=== PATIENT | female | born 2000 | race Caucasian/White ===

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

== ENCOUNTER 2019-03-23 05:11 | Inpatient (IN) | payer MEDICAID, OTHER, SELFPAY ==
[~2019-03-23] VITALS: Ht 177.8 cm; Wt 100.7 kg
[~2019-03-23 05:11] MED LIST: ALEV220T26 PO; LANS30CA; MAXA10TA15 PO; SUCR1TAB56 PO
[2019-03-23] MEDS ORDERED: MULT-40 PO (06:09)
[2019-03-23] MEDS ORDERED: GREE150C7 PO (06:09)
[2019-03-23] MEDS ORDERED: NORE0.353 PO (06:09)
[2019-03-23] MEDS ORDERED: CLIN1GEL3 EXT (06:09)
[2019-03-23] MEDS ORDERED: L-CA1CAP PO (06:09)
[2019-03-23] MEDS ORDERED: OMEGCAP4 PO (06:09)
[2019-03-23] MEDS ORDERED: MINO100C80 PO (06:09)
[2019-03-23 08:20] LABS: BASO % 0.4 % (0.0-1.0); EOS # 0.1 10^3/uL (0.0-0.50); EOS % 1.2 % (0.0-3.0); HEMATOCRIT 34.7 % (36.0-47.0); HEMOGLOBIN 11.1 g/dl (12.0-15.5); LYMPH # 2.3 10^3/uL (1.5-6.5); LYMPH % 44.2 % (24.0-44.0); MEAN CORPUSCULAR HEMOGLOBIN 26.2 pg (27.0-33.0); MEAN CORPUSCULAR VOLUME 81.8 fl (80.0-96.0); MONO # 0.3 10^3/uL (0.0-0.8); MONO % 5.5 % (0.0-5.0); NEUTROPHILS # 2.5 10^3/uL (1.8-7.7); NEUTROPHILS % 48.5 % (36.0-66.0); PLATELET COUNT, AUTOMATED 214 10^3/uL (150-450); RED BLOOD COUNT 4.24 10^6/uL (4.00-5.40); WHITE BLOOD COUNT 5.1 10^3/uL (4.0-10.0)
[2019-03-23] MEDS: D5W/LR 1,000 ML IV SCH ×2 (08:32→18:50)
[2019-03-23 08:38] LABS: ALBUMIN 3.5 GM/DL (3.2-5.2); ALT/SGPT 34 U/L (12-78); BILIRUBIN,TOTAL 0.2 MG/DL (0.2-1.0); BLOOD UREA NITROGEN 5 MG/DL (7-18); CALCIUM LEVEL 8.7 MG/DL (8.5-10.1); CARBON DIOXIDE LEVEL 27 MEQ/L (21-32); CHLORIDE LEVEL 109 MEQ/L (98-107); CREATININE FOR GFR 0.82 MG/DL (0.55-1.30); GLUCOSE, FASTING 84 MG/DL (70-100); POTASSIUM SERUM 3.4 MEQ/L (3.5-5.1); SODIUM LEVEL 143 MEQ/L (136-145); TOTAL PROTEIN 6.2 GM/DL (6.4-8.2)
[2019-03-23] MEDS ORDERED: KETOROLAC 30 MG/ML VIAL (J1885) As Ordered ONE (08:46)
[2019-03-23] MEDS ORDERED: KETOROLAC 30 MG/ML VIAL (J1885) IV ONE (08:50)
[2019-03-23 09:00] VITALS: BP 141/84
[2019-03-23] MEDS: LR 1,000 ML IV SCH ×2 (09:15→15:55)
[2019-03-23] MEDS: MORPHINE 4 MG/ML 1ML VIAL/SYRINGE (J2270) IV PRN ×3 (09:31→21:53)
[2019-03-23] MEDS: AMPICILLIN SOD/SULBACTAM SOD 3 GM in D5W MINI-BAG PLUS 100 ML IV SCH ×3 (09:31→20:30)
[2019-03-23 12:00] VITALS: BP 99/61
[2019-03-23] MEDS: PANTOPRAZOLE 40MG TAB (PROTONIX) PO SCH (14:59)
[2019-03-23] MEDS: KETOROLAC 30 MG/ML VIAL (J1885) IV SCH ×2 (15:00→20:30)
--- NOTE | 2019-03-23 15:24 | REP ---
HIDA SCAN: Following the intravenous administration of 6.5 mCi of technetium 99m mebrofenin, multiple images of the right upper quadrant are performed every 5 minutes for a period of one hour. The gallbladder is visualized at 20 minutes post injection. There is biliary to bowel transit at 55 minutes post injection. IMPRESSION: No scintigraphic evidence of cholecystitis. Electronically Signed by Juanito Willis MD 03/24/2019 01:01 P
[2019-03-23 16:00] VITALS: BP 120/66
[2019-03-23 20:00] VITALS: BP 110/66
[2019-03-24] VITALS: BP 108/51
[2019-03-24] MEDS: MORPHINE 4 MG/ML 1ML VIAL/SYRINGE (J2270) IV PRN ×4 (00:27→20:11)
[2019-03-24] MEDS: AMPICILLIN SOD/SULBACTAM SOD 3 GM in D5W MINI-BAG PLUS 100 ML IV SCH ×4 (02:39→21:54)
[2019-03-24] MEDS: KETOROLAC 30 MG/ML VIAL (J1885) IV SCH ×4 (02:40→21:54)
[2019-03-24 04:00] VITALS: BP 96/54
[2019-03-24] MEDS: GASTROGRAFIN SOLUTION 30ML PO SCH ×2 (06:20→08:02)
[2019-03-24] MEDS: D5W/LR 1,000 ML IV SCH ×4 (06:22→22:39)
[2019-03-24 08:00] VITALS: BP 106/54
[2019-03-24 08:19] LABS: URINE PREG TEST NEGATIVE (NEGATIVE)
[2019-03-24 08:47] LABS: HEMATOCRIT 36.4 % (36.0-47.0); HEMOGLOBIN 11.6 g/dl (12.0-15.5); MEAN CORPUSCULAR HEMOGLOBIN 27.1 pg (27.0-33.0); MEAN CORPUSCULAR HGB CONC 31.9 g/dl (32.0-36.5); PLATELET COUNT, AUTOMATED 217 10^3/uL (150-450); RED BLOOD COUNT 4.28 10^6/uL (4.00-5.40); WHITE BLOOD COUNT 4.4 10^3/uL (4.0-10.0)
--- NOTE | 2019-03-24 08:48 | HPE ---
DATE OF ADMISSION: 03/23/2019 CHIEF COMPLAINT: Right upper quadrant pain, question cholecystitis. HISTORY OF PRESENT ILLNESS: The patient is a 18-year-old female who has had some irritable bowel symptoms over the last several years, had a workup by Dr. Barber a couple years ago including a gallbladder ultrasound which showed no gallstones. However, she presented to the emergency room with a 24 to 36-hour history of abdominal pain and specifically right upper quadrant abdominal pain. She has had some minimal nausea without significant reflux. She has not had a history of gastric ulcers and has not had any previous obstructive symptoms. Gallbladder ultrasound was performed and revealed thickening of the gallbladder consistent with cholecystitis. No gallstones were seen. However and the common bile duct was normal. LFTs were normal and white count was normal. She was transferred here for additional recommendations. After she came to the emergency room and was directly admitted to the floor for treatment for antibiotics, nothing by mouth, and treatment. After being admitted to the floor she was seen and at this time it was almost 48 hours since she has had her abdominal pain and a repeat CBC and CPA were normal showing no evidence of cholecystitis. Her past medical history is significant for irritable bowel disease. Medications at home are control pills, multiple multivitamins, Clindagel for facial acne, omega 3 fish oil, etc. Physical exam reveals a 18-year-old female who looks stated age. HEENT is unremarkable. Neck supple without adenopathy. Lungs are clear to auscultation. Heart is regular. Abdomen, however, she has some tenderness in the right upper quadrant and on the right ribs and on the costal margin. The rest of her abdomen is benign. She is not distended. She is not tender in other areas. IMPRESSION AND PLAN: The patient has clinical evidence of localized inflammation in the right upper quadrant. However, this does not seem like a typical infectious process given her history of no gallstones and normal white count. This could be an unusual presentation of acalculous cholecystitis and thus will plan to obtain the HIDA scan to rule out acute cholecystitis. If this is negative, we will see how she is doing later on and possibly proceed with a CAT scan of the abdomen and pelvis. Otherwise her temperature and white count appear normal at this time.
[2019-03-24 09:14] LABS: ALBUMIN 3.1 GM/DL (3.2-5.2); ALT/SGPT 26 U/L (12-78); BILIRUBIN,TOTAL 0.2 MG/DL (0.2-1.0); BLOOD UREA NITROGEN 3 MG/DL (7-18); CALCIUM LEVEL 8.7 MG/DL (8.5-10.1); CARBON DIOXIDE LEVEL 30 MEQ/L (21-32); CHLORIDE LEVEL 109 MEQ/L (98-107); CREATININE FOR GFR 0.83 MG/DL (0.55-1.30); GLUCOSE, FASTING 88 MG/DL (70-100); SODIUM LEVEL 143 MEQ/L (136-145); TOTAL PROTEIN 5.9 GM/DL (6.4-8.2)
[2019-03-24 09:29] LABS: AMYLASE 26 U/L (25-115)
[2019-03-24] MEDS: PANTOPRAZOLE 40MG TAB (PROTONIX) PO SCH (09:30)
--- NOTE | 2019-03-24 10:19 | REP ---
REASON FOR EXAM: Abdominal pain. No priors for comparison. The lack of intravenous contrast decreases the sensitivity of the exam. Oral bowel preparatory contrast was administered prior to the exam. Patchy opacities are seen in the lung bases with suspected small bilateral pleural effusions. Limited evaluation of the solid intra-abdominal organs show no gross abnormalities. There pericholecystic edema with fluid in Morison's pouch and a small amount of fluid in the right paracolic gutter. There appears to be a small amount of dense material in the gallbladder. This limited examination cannot assess for gallbladder wall thickening. Limited evaluation of the pancreas, adrenal glands, and kidneys show no gross abnormalities. Limited evaluation of the abdominal aorta and paraaortic regions show no gross abnormalities. There is no evidence of free air in the abdomen. Limited evaluation of the bowel loops and their mesenteries show no gross abnormalities. The appendix is well visualized and is within normal limits. CT PELVIS: There is a moderate amount of free fluid with free fluid seen in the inferior most portion of the right paracolic gutter. Limited evaluation of the pelvic bowel loops show no gross abnormalities. Bone window technique throughout the exam shows the osseous structures to be within normal limits. IMPRESSION: 1. Abnormal lung base findings as described above suspicious for pneumonia with small pleural effusions, however, this needs to be correlated clinically with appropriate followup. 2. Abnormal fluid in the abdomen and pelvis as described above. I cannot rule out the possibility of gallbladder pathology on this limited noncontrast enhanced exam. I would suggest followup with an IV contrast enhanced exam for better evaluation of not only the gallbladder, but the pancreas. 3. Patient had an outside gallbladder ultrasound obtained 03/2019. There is no report from that examination accompanying the images. Review of that examination shows an abnormal gallbladder. Acute cholecystitis cannot be ruled out by today's CT exam. Pancreatitis cannot be ruled out by today's CT exam. 4. Other findings as described above. Electronically Signed by Dennis Osuna DO 03/24/2019 12:37 P
[2019-03-24 10:36] LABS: LIPASE 93 U/L (73-393)
[2019-03-24 12:00] VITALS: BP 138/75
[2019-03-24 12:11] LABS: APPEARANCE, URINE HAZY (CLEAR); BACTERIA, URINE AUTO 1+ (NEGATIVE); BILIRUBIN, URINE AUTO NEGATIVE (NEGATIVE); BLOOD, URINE BLOOD 2+ (NEGATIVE); COLOR, URINE YELLOW (YELLOW); GLUCOSE, URINE (UA) AUTO NEGATIVE (NEGATIVE); KETONE, URINE AUTO NEGATIVE (NEGATIVE); LEUKOCYTE ESTERASE, URINE AUTO 3+ (NEGATIVE); NITRITE, URINE AUTO NEGATIVE (NEGATIVE); PROTEIN, URINE AUTO NEGATIVE (NEGATIVE); RBC, URINE AUTO 5 /HPF (0-3); SPECIFIC GRAVITY URINE AUTO 1.003 (1.002-1.035); SQUAMOUS EPITHELIAL CELL UR AU 11 /HPF (0-6); UROBILINOGEN, URINE AUTO 0.2 mg/dL (0.0-2.0); WBC, URINE AUTO 26 /HPF (0-3)
[2019-03-24] MEDS: SUCRALFATE SUSP 1GM/10ML UD PO SCH ×2 (12:21→18:34)
[2019-03-24] MEDS: IPRATROPIUM 0.5MG/ALBUTEROL 2.5MG INH SOL UD 3ML (DUONEB)(J7620) NEB SCH ×3 (15:04→20:00)
[2019-03-24 16:00] VITALS: BP 127/71
[2019-03-24] MEDS ORDERED: ONDANSETRON 4MG/2ML VIAL (J2405) IV PRN (22:30)
[2019-03-24 23:00] VITALS: BP 117/73
[2019-03-25] MEDS: AMPICILLIN SOD/SULBACTAM SOD 3 GM in D5W MINI-BAG PLUS 100 ML IV SCH ×4 (03:17→20:49)
[2019-03-25] MEDS: KETOROLAC 30 MG/ML VIAL (J1885) IV SCH ×4 (03:18→20:49)
[2019-03-25] MEDS: MORPHINE 4 MG/ML 1ML VIAL/SYRINGE (J2270) IV PRN ×3 (03:35→13:46)
[2019-03-25 04:00] VITALS: BP 100/56
[2019-03-25] MEDS: SUCRALFATE SUSP 1GM/10ML UD PO SCH ×2 (06:00)
[2019-03-25 08:00] VITALS: BP 126/71
[2019-03-25] MEDS: PANTOPRAZOLE 40MG TAB (PROTONIX) PO SCH (08:15)
[2019-03-25] MEDS: D5W/LR 1,000 ML IV SCH ×2 (08:36→19:21)
[2019-03-25] MEDS: IPRATROPIUM 0.5MG/ALBUTEROL 2.5MG INH SOL UD 3ML (DUONEB)(J7620) NEB SCH ×4 (08:39→20:51)
--- NOTE | 2019-03-25 09:08 | IPN ---
DATE: 03/23/2019 SUBJECTIVELY: The patient states that she is feeling a little bit better and she notices that she really does not have that much pain if she is laying relatively still. This is different than the day prior she continued to have pain despite being relatively sedentary. We did a CAT scan and it definitely showed some atelectasis bilaterally and some fluid around the pancreatic head, around the gallbladder area and around Gerota's fascia. No other significant abnormalities were appreciated on the study. Her white count remained normal, amylase and lipase normal which I checked after the CAT scan showed the inflammatory changes around the pancreas and she has been afebrile. On her physical exam her abdomen is soft. She has decreased tenderness in the right subcostal area compared to the day prior and some mild tenderness in the mid epigastric area however today but overall an improvement since yesterday. IMPRESSION AND PLAN: The patient has some improvement of abdominal pain of undetermined etiology. This seems as though this is a very unusual presentation for acalculous cholecystitis, otherwise the etiology of this is yet to be determined. I have discussed this with other surgeons to see if they think that this might still be gallbladder related despite a normal liver function test with the inflammatory changes seen and they are skeptical that that is the etiology but they recommend seeing how things go given that there is no increase white count, fever, etc. at this time and the pain is slowly improving to see how things go next 24-48 hours.
[2019-03-25 09:15] LABS: HEMATOCRIT 38.8 % (36.0-47.0); HEMOGLOBIN 12.2 g/dl (12.0-15.5); MEAN CORPUSCULAR HEMOGLOBIN 26.9 pg (27.0-33.0); MEAN CORPUSCULAR HGB CONC 31.4 g/dl (32.0-36.5); MEAN CORPUSCULAR VOLUME 85.5 fl (80.0-96.0); PLATELET COUNT, AUTOMATED 203 10^3/uL (150-450); RED BLOOD COUNT 4.54 10^6/uL (4.00-5.40); WHITE BLOOD COUNT 4.7 10^3/uL (4.0-10.0)
[2019-03-25 09:58] LABS: ALBUMIN 3.1 GM/DL (3.2-5.2); ALT/SGPT 24 U/L (12-78); BILIRUBIN,TOTAL 0.2 MG/DL (0.2-1.0); BLOOD UREA NITROGEN 3 MG/DL (7-18); CALCIUM LEVEL 8.7 MG/DL (8.5-10.1); CARBON DIOXIDE LEVEL 29 MEQ/L (21-32); CHLORIDE LEVEL 107 MEQ/L (98-107); CREATININE FOR GFR 0.93 MG/DL (0.55-1.30); GLUCOSE, FASTING 80 MG/DL (70-100); POTASSIUM SERUM 3.6 MEQ/L (3.5-5.1); SODIUM LEVEL 142 MEQ/L (136-145); TOTAL PROTEIN 5.7 GM/DL (6.4-8.2)
[2019-03-25 12:00] VITALS: BP 133/63
[2019-03-25 16:00] VITALS: BP 118/72
[2019-03-25 23:00] VITALS: BP 103/54
[2019-03-26] VITALS (10 sets, daily range): BP systolic 113–142; BP diastolic 55–78
[2019-03-26] MEDS: KETOROLAC 30 MG/ML VIAL (J1885) IV SCH ×4 (03:32→20:25)
[2019-03-26] MEDS: AMPICILLIN SOD/SULBACTAM SOD 3 GM in D5W MINI-BAG PLUS 100 ML IV SCH ×4 (03:32→20:25)
[2019-03-26] MEDS: D5W/LR 1,000 ML IV SCH ×2 (03:33→13:20)
[2019-03-26] MEDS: IPRATROPIUM 0.5MG/ALBUTEROL 2.5MG INH SOL UD 3ML (DUONEB)(J7620) NEB SCH ×4 (07:52→21:30)
[2019-03-26] MEDS: PANTOPRAZOLE 40MG TAB (PROTONIX) PO SCH (09:13)
--- NOTE | 2019-03-26 13:36 | IPN ---
DATE: 03/25/2019 The patient seems to be making no significant progress over the day and overnight; however, she has still been afebrile, her white count is still normal, and no other significant abnormalities are appreciated on exam. She is starting to have a little bit more tenderness in the epigastric area compared to the right upper quadrant, and that is her descriptive terms and discomfort that she is having; however, on her physical exam, it seems as though she is getting less tender each day and so much more so that it seems like it is mostly discomfort more than true tenderness as she came in with, and it is significantly improved from that status, although she still claims despite her pain being much better than on admission, her pain is still an 8-9. IMPRESSION AND PLAN: The patient has persistence of her of cholecystitis, although I do feel that most likely this is improving, and at this point we have no other specific diagnosis for her other than an acalculous cholecystitis with some inflammatory changes in this area. Thus, we made some recommendations to the patient that we can continue our workup with MRIs, upper gastrointestinal (GI), etc., or proceed with laparoscopic cholecystectomy. At this point she would like to proceed with laparoscopic cholecystectomy. She understands the risks as well as benefits associated with this and will proceed with this tomorrow.
[2019-03-26] MEDS ORDERED: BUPIVACAINE/EPIN 0.25% 30 ML VIAL As Ordered ONE (13:43)
[2019-03-26] MEDS ORDERED: LIDOCAINE 2% INJ 100 MG/5 ML SDV (FOR ANES.) As Ordered ONE (13:56)
[2019-03-26] MEDS ORDERED: PROPOFOL 200 MG/20 ML VIAL As Ordered ONE (13:56)
[2019-03-26] MEDS ORDERED: ROCURONIUM BROMIDE 50 MG/5 ML VIAL As Ordered ONE (13:56)
[2019-03-26] MEDS ORDERED: fentaNYL 250 MCG/5 ML INJECTION (J3010) As Ordered ONE (13:57)
[2019-03-26] MEDS ORDERED: MIDAZOLAM INJ 2 MG/2 ML VIAL (J2250) As Ordered ONE (13:58)
[2019-03-26] MEDS ORDERED: ONDANSETRON 4MG/2ML VIAL (J2405) As Ordered ONE ×2 (14:52→15:38)
[2019-03-26] MEDS ORDERED: SUGAMMADEX SODIUM 500 MG/5 ML VIAL (BRIDION) As Ordered ONE (14:52)
[2019-03-26] MEDS ORDERED: dexameTHASONE 4 MG/ML 1ML VIAL (J1100) As Ordered ONE (14:52)
[2019-03-26] MEDS ORDERED: METOCLOPRAMIDE INJ 10MG/2ML VIAL (J2765) As Ordered ONE (14:52)
[2019-03-26] MEDS ORDERED: KETOROLAC 60 MG/2 ML VIAL (J1885) As Ordered ONE (14:52)
[2019-03-26] MEDS ORDERED: fentaNYL 100 MCG/2 ML INJECTION (J3010) As Ordered ONE ×2 (15:07→15:48)
[2019-03-26] MEDS ORDERED: PROMETHAZINE INJ 25 MG/ML VIAL (J2550) As Ordered ONE (15:48)
[2019-03-26] MEDS: fentaNYL 100 MCG/2 ML INJECTION (J3010) IV PRN ×2 (15:50→15:55)
[2019-03-26] MEDS ORDERED: PROMETHAZINE INJ 25 MG/ML VIAL (J2550) IV PRN (16:00)
[2019-03-26] MEDS ORDERED: ONDANSETRON 4MG/2ML VIAL (J2405) IV PRN (16:00)
[2019-03-26] MEDS ORDERED: oxyCODONE 5MG TAB PO PRN (16:00)
[2019-03-26] MEDS ORDERED: LR 1,000 ML IV SCH (16:00)
[2019-03-26] MEDS ORDERED: oxyCODONE 5MG TAB As Ordered ONE (16:20)
[2019-03-26] MEDS: NORCO, ANEXSIA 5/325MG TABLET (HYDROcodone/ACETAMINOPHEN) PO PRN (21:21)
[2019-03-27] VITALS: BP 124/56
[2019-03-27] MEDS: MORPHINE 4 MG/ML 1ML VIAL/SYRINGE (J2270) IV PRN (00:21)
[2019-03-27] MEDS: AMPICILLIN SOD/SULBACTAM SOD 3 GM in D5W MINI-BAG PLUS 100 ML IV SCH ×2 (03:31→08:38)
[2019-03-27] MEDS: KETOROLAC 30 MG/ML VIAL (J1885) IV SCH ×2 (03:32→08:39)
[2019-03-27 04:00] VITALS: BP 120/58
[2019-03-27] MEDS: IPRATROPIUM 0.5MG/ALBUTEROL 2.5MG INH SOL UD 3ML (DUONEB)(J7620) NEB SCH (07:31)
[2019-03-27 08:00] VITALS: BP 115/53
[2019-03-27] MEDS: PANTOPRAZOLE 40MG TAB (PROTONIX) PO SCH (08:39)
[2019-03-27] MEDS ORDERED: HYDR-4571 PO (10:51)
[2019-03-27] MEDS: NORCO, ANEXSIA 5/325MG TABLET (HYDROcodone/ACETAMINOPHEN) PO PRN (11:28)
--- NOTE | 2019-04-06 10:57 | RO ---
DATE OF PROCEDURE: 03/26/2019 PREOPERATIVE DIAGNOSIS: Acute cholecystitis. POSTOPERATIVE DIAGNOSIS: Acute cholecystitis. PROCEDURE: Laparoscopic cholecystectomy. SURGEON: Good David MD ANESTHESIA: General endotracheal anesthesia. ESTIMATED BLOOD LOSS: Minimal. FLUIDS: Crystalloid. BRIEF PROCEDURE SUMMARY: The patient was brought to the operating room and was given general anesthesia. After adequate anesthesia and preoperative antibiotics were given the patient was prepped and draped in the usual fashion. Next a supraumbilical incision was made with skin knife. Blunt dissection was carried down to fascia and Veress needle placed into the abdominal cavity insufflated to 15 mm of pressure. A dilating 10 mm trocar was placed at this time and under direct visualization two lateral 5 mm and an epigastric 5 mm trocar were placed. The gallbladder was grasped, retracted superiorly and there was a great deal of edema in the gallbladder wall and thus it was able to be grasped, retracted superiorly just enough to clear off the peritoneum on the neck of the gallbladder. Once this was cleared this was cleared anteriorly as well, cystic artery was seen was actually anterior cystic artery going right onto the gallbladder itself thus it was clipped proximally and distally and transected as a it went on to the gallbladder. And then the posterior aspect of the neck of the gallbladder was cleared of its attachments to the liver and with some minimal blunt dissection as well as the hook cautery and once a window was created a larger window eventually was made gradually spreading this open until I was able to visualize the neck of the gallbladder tapering down to the cystic duct quite nicely. Cystic duct was well visualized proximally and distally and after dissection up into the cystic plate the cystic duct was clipped proximally and distally and transected. Gallbladder was removed from the gallbladder bed and placed in an EndoCatch bag brought out through the umbilicus. The right upper quadrant having been copiously irrigated till clear and all trocars removed under direct visualization. #0 Vicryl was used to close the fascia at the umbilicus and all incisions were closed with #4-0 Vicryl. Steri-Strips and a dry sterile dressing was applied. The patient was awakened, extubated, brought to recovery room awake, alert, and hemodynamic stable. Sponge, needle counts correct times two.
--- NOTE | 2019-04-06 11:02 | DSES ---
DATE OF ADMISSION: 03/23/2019 DATE OF DISCHARGE: 03/27/2019 PRINCIPAL DIAGNOSIS: Acute cholecystitis. BRIEF HISTORY OF PRESENT ILLNESS: The patient is a 19-year-old female who had been worked up by Dr. Barber for epigastric pain and abdominal pain that was present for 24-36 hours prior to admission that was severe in the epigastric area right upper quadrant, and essentially a gallbladder ultrasound was performed revealing a thickened gallbladder wall. However, no gallstones were appreciated and liver function tests (LFTs) and white count were normal at this time. HOSPITAL COURSE SUMMARY: The patient was admitted with the above diagnosis, was given intravenous (IV) antibiotics, was kept nothing by mouth and essentially, she had a normal white count throughout. Her liver function tests were normal as well, but still had persistent abdominal pain. She had a HIDA scan, which showed no evidence of cholecystitis. However, she had persistence and ongoing pain and discomfort in the right upper quadrant. Thus, she was taken to the operating room for a diagnostic laparoscopy where the presumed diagnosis was most likely acute cholecystitis given the original ultrasound findings. Then, the patient underwent laparoscopic cholecystectomy for evidence of acute cholecystitis and she did well after the operation. Was discharged home on the first postoperative day with instructions to followup in 1 week, sooner if there is any question, concerns, fevers, chills, or any other complaints. She was discharged home on [place] 5/325 1 tablet every 4 hours as needed, pain.
== END 2019-03-27 12:00 | disposition home or self-care (01) | DRG 263 ==
LOC: M ED 05:11 → M ED INP 05:27 → M PED 09:00
PROVIDERS: ADMIT Surgery; ATTEND Surgery
PROC: 0FT44ZZ Resection of Gallbladder, Percutaneous Endoscopic Approach (ICD-10-PCS; principal; 2019-03-26 13:00)
DX: K81.0 Acute cholecystitis (principal); Z79.899 Other long term (current) drug therapy; K58.9 Irritable bowel syndrome, unspecified

== ENCOUNTER → 2019-05-24 | Outpatient (REF) | payer OTHER ==
[~2019-05-24] MED LIST changes: +CLIN1GEL3 EXT; +GREE150C7 PO; +HYDR-4571 PO; +L-CA1CAP PO; +MINO100C80 PO; +MULT-40 PO; +NORE0.353 PO; +OMEGCAP4 PO
== END ==
LOC: M LAB REF 12:00
PROVIDERS: ATTEND Physician Assistant
DX: L03.316 Cellulitis of umbilicus (principal)

== ENCOUNTER → 2020-01-28 | Outpatient (CLI) | payer OTHER | LOC: M LABSMTC 12:37 | PROVIDERS: ATTEND Family Medicine | DX: Z11.59 Encounter for screening for other viral diseases (principal) | CPT/HCPCS: C9803; U0003 ==

== ENCOUNTER → 2020-08-06 | Outpatient (REF) | payer OTHER ==
[2020-08-06 22:52] LABS: APPEARANCE, URINE CLOUDY (CLEAR); BACTERIA, URINE AUTO NEGATIVE (NEGATIVE); BILIRUBIN, URINE AUTO NEGATIVE (NEGATIVE); BLOOD, URINE BLOOD 1+ (NEGATIVE); COLOR, URINE YELLOW (YELLOW); GLUCOSE, URINE (UA) AUTO NEGATIVE (NEGATIVE); KETONE, URINE AUTO NEGATIVE (NEGATIVE); LEUKOCYTE ESTERASE, URINE AUTO 3+ (NEGATIVE); MUCUS, URINE SMALL (NEGATIVE); NITRITE, URINE AUTO NEGATIVE (NEGATIVE); PROTEIN, URINE AUTO 1+ mg/dL (NEGATIVE); RBC, URINE AUTO 19 /HPF (0-3); SPECIFIC GRAVITY URINE AUTO 1.024 (1.002-1.035); SQUAMOUS EPITHELIAL CELL UR AU 1 /HPF (0-6); UROBILINOGEN, URINE AUTO 0.2 mg/dL (0.0-2.0); WBC, URINE AUTO TNTC /HPF (0-3)
== END ==
LOC: M LAB REF 15:07
PROVIDERS: ATTEND Physician Assistant
DX: N39.0 Urinary tract infection, site not specified (principal)

== ENCOUNTER → 2020-09-21 | Outpatient (REF) | payer OTHER ==
[2020-09-21 10:21] LABS: BASO % 0.3 % (0.0-1.0); EOS # 0.1 10^3/uL (0.0-0.5); EOS % 1.3 % (0.0-3.0); HEMOGLOBIN 12.9 g/dl (12.0-15.5); LYMPH # 1.9 10^3/uL (1.5-5.0); LYMPH % 29.7 % (24.0-44.0); MEAN CORPUSCULAR HEMOGLOBIN 25.9 pg (27.0-33.0); MEAN CORPUSCULAR HGB CONC 31.5 g/dl (32.0-36.5); MEAN CORPUSCULAR VOLUME 82.2 fl (80.0-96.0); MONO # 0.4 10^3/uL (0.0-0.8); NEUTROPHILS # 3.9 10^3/uL (1.5-8.5); NEUTROPHILS % 61.5 % (36.0-66.0); PLATELET COUNT, AUTOMATED 241 10^3/uL (150-450); RED BLOOD COUNT 4.99 10^6/uL (4.00-5.40); WHITE BLOOD COUNT 6.3 10^3/uL (4.0-10.0)
[2020-09-21 10:46] LABS: ALBUMIN 3.8 GM/DL (3.2-5.2); ALT/SGPT 73 U/L (12-78); BILIRUBIN,TOTAL 0.2 MG/DL (0.2-1.0); BLOOD UREA NITROGEN 13 MG/DL (7-18); CALCIUM LEVEL 9.4 MG/DL (8.5-10.1); CARBON DIOXIDE LEVEL 26 MEQ/L (21-32); CHLORIDE LEVEL 106 MEQ/L (98-107); CREATININE FOR GFR 0.75 MG/DL (0.55-1.30); GLOMERULAR FILTRATION RATE > 60.0 (>60); GLUCOSE, FASTING 91 MG/DL (70-100); POTASSIUM SERUM 4.3 MEQ/L (3.5-5.1); SODIUM LEVEL 139 MEQ/L (136-145)
== END ==
LOC: M SFHCADAM 08:10
PROVIDERS: ATTEND Family Medicine
DX: Z00.00 Encounter for general adult medical examination without abnormal findings (principal); L70.9 Acne, unspecified; L65.9 Nonscarring hair loss, unspecified

== ENCOUNTER → 2020-10-06 | Outpatient (REF) | payer OTHER ==
[2020-10-06 16:24] LABS: HEMOGLOBIN A1c 5.5 %
[2020-10-06 16:42] LABS: FREE T3 2.7 PG/ML (2.2-4.0); FREE T4 0.97 NG/DL (0.76-1.46)
[2020-10-06 16:44] LABS: PROLACTIN 10.1 NG/ML
[2020-10-06 16:45] LABS: FOLLICLE STIMULATING HORMONE 5.1 mIU/mL; LUTEINIZING HORMONE 5.6 mIU/mL
== END ==
LOC: M PLALAB 14:40
PROVIDERS: ATTEND Advanced Practice Midwife
DX: N92.1 Excessive and frequent menstruation with irregular cycle (principal); L70.0 Acne vulgaris; R63.5 Abnormal weight gain